=== PATIENT | female | born 1995 | race Two or more races ===

== ENCOUNTER 2017-03-26 20:42 | Emergency (ER) | payer MEDICAID ==
[~2017-03-26] VITALS: Ht 154.9 cm; Wt 63.5 kg
[2017-03-26 20:56] VITALS: BP 108/55
[2017-03-26] MEDS ORDERED: ONDANSETRON ODT 4 MG TAB PO ONE (23:00)
[2017-03-27] MEDS ORDERED: ACETAMINOPHEN/CODEINE#3 (300/30mg) TAB PO ONE ×2 (00:15→00:30)
== END 2017-03-27 00:11 | disposition home or self-care (01) ==
LOC: ER 20:43
DX: K52.9 Noninfective gastroenteritis and colitis, unspecified (principal)
CPT/HCPCS: 99283; Q0162